=== PATIENT | male | born 1980 | race Caucasian/White ===

== ENCOUNTER 2018-09-26 18:36 | Emergency (ER) | payer SELFPAY ==
[~2018-09-26] VITALS: Wt 82.0 kg
[2018-09-26] MEDS ORDERED: SOD CHLORIDE 0.9% 1,000 ML IV STA (19:14)
[2018-09-26] MEDS ORDERED: ONDANSETRON 4 MG INJ IV STA (19:14)
[2018-09-26] MEDS ORDERED: ACET-141 PO (20:13)
[2018-09-26] MEDS ORDERED: ALKA PO (20:13)
[2018-09-26] MEDS ORDERED: IOHEXOL 300MG/ML 150 ML BTL ONE (23:16)
[2018-09-26] MEDS ORDERED: SOD CHLORIDE 0.9% 100 ML ONE (23:16)
--- NOTE | 2018-09-27 00:05 | ERD ---
ER Documentation Chief Complaint Chief Complaint bib self, jeison cano, cc: chest pain and sob, stopped upon arrival HPI This is a very pleasant 38-year-old male who works at [employer] and had gone into the elevator and had a sudden onset of shortness of breath and dizziness. Contrary to the triage note he was noted x-rays any chest pain but rather palpitations. He felt as though the room was spinning around h im. He denied a headache. He had no neck pain. He has no shortness of breath at rest or exertion. Indicates he has had lack of sleep over several days as he has had his daughter undergoing multiple tests and MRIs. He denies any recent travel. He denies tobacco. He has no family history of coronary artery disease. The patient also indicates he did have a similar episode 4 years ago. He is brought to the emergency department as a code green. ROS All systems reviewed and are negative except as per history of present illness. Medications Home Meds Reported Medications Aspirin ([place]) 1 Tab Tabef, 1 TAB PO, TAB 09/26/18 Acetaminophen* (Acetaminophen*) 500 MG Extra Strength Tablet, 500 MG PO Q4H PRN for PAIN AND OR ELEVATED TEMP, TAB 09/26/18 Allergies Allergies: Coded Allergies: No Known Allergy (Unverified , 09/26/18) PMhx/Soc History of Surgery: Yes (HERNIA REPAIR) Hx Cardiac Disorders: Yes (HLD, "HEART VIRUS" PER PT) Hx Miscellaneous Medical Probl: No Hx Alcohol Use: Yes (OCCASIONAL) Hx Substance Use: No Hx Tobacco Use: No Smoking Status: Never smoker Physical Exam Vitals Vital Signs Date Temp Pulse Resp B/P (MAP) Pulse Ox O2 O2 Flow FiO2 Time Delivery Rate 09/26/18 105 16 138/88 100 Room Air 22:00 (105) 09/26/18 108 19 115/93 99 Room Air 20:07 (100) 09/26/18 98.1 82 19 137/71 100 18:45 (93) Physical Exam Constitutional:Well-developed. Well-nourished. HEENT:Normocephalic. Atraumatic.Pupils were equal round reactive to light. Moist mucous membranes.No tonsillar exudates. Neck: No nuchal rigidity. No lymphadenopathy. No posterior cervical spine tenderness or step-offs. Respiratory: Not using accessory muscles of respiration.Lungs were clear to auscultation bilaterally. No rhonchi. No rales. No wheezing. Cardiovascular: Sinus tachycardia with regular rhythm.No murmurs. No rubs were appreciated.S1, S2 normal. Distal pulses are palpable 2+ bilaterally. GI: Abdomen was soft. Nontender. Non Distended. No pulsatile abdominal masses or bruits. No rebound. No guarding. Bowel sounds were present and normal. Muscle skeletal: Full range of motion of both the upper and lower extremities bilaterally.Normal muscle tone.No assymetrical calf tenderness or swelling. Skin: No petechia, no purpura. No lesions on the palms or the soles of the feet. No maculopapular rash. NEURO: Patient was alert, awake, orientated x3.No facial droop. Gait observed and normal with no ataxia.Speech had regular rate and rhythm. No focal neurological deficits. Result Diagram: 09/26/18193409/26/181934 Results 24 hrs Laboratory Tests Test 09/26/18 19:35 White Blood Count 11.9 10^3/ul Red Blood Count 5.71 10^6/ul Hemoglobin 16.3 g/dl Hematocrit 48.9 % Mean Corpuscular Volume 85.6 fl Mean Corpuscular Hemoglobin 28.5 pg Mean Corpuscular Hemoglobin Concent 33.3 g/dl Red Cell Distribution Width 12.7 % Platelet Count 357 10^3/UL Mean Platelet Volume 9.0 fl Immature Granulocytes % 0.700 % Neutrophils % 81.1 % Lymphocytes % 11.9 % Monocytes % 6.0 % Eosinophils % 0.0 % Basophils % 0.3 % Nucleated Red Blood Cells % 0.0 /100WBC Immature Granulocytes # 0.080 10^3/ul Neutrophils # 9.7 10^3/ul Lymphocytes # 1.4 10^3/ul Monocytes # 0.7 10^3/ul Eosinophils # 0.0 10^3/ul Basophils # 0.0 10^3/ul Nucleated Red Blood Cells # 0.0 10^3/ul Prothrombin Time 12.7 Sec Prothrombin Time Ratio 1.0 INR International Normalized Ratio 0.94 Activated Partial Thromboplast Time 30.1 Sec D-Dimer 716.90 ng/ml D-Dimer Comment Sodium Level 143 mmol/L Potassium Level 4.0 mmol/L Chloride Level 102 mmol/L Carbon Dioxide Level 25 mmol/L Anion Gap 16 Blood Urea Nitrogen 16 mg/dl Creatinine 0.82 mg/dl Est Glomerular Filtrat Rate mL/min > 60 mL/min Glucose Level 144 mg/dl Calcium Level 9.8 mg/dl Total Bilirubin 0.4 mg/dl Direct Bilirubin 0.00 mg/dl Indirect Bilirubin 0.4 mg/dl Aspartate Amino Transf (AST/SGOT) 34 IU/L Alanine Aminotransferase (ALT/SGPT) 64 IU/L Alkaline Phosphatase 110 IU/L Creatine Kinase 93 IU/L Creatine Kinase Index 0.5 Creatinine Kinase MB (Mass) 0.46 ng/ml Troponin I < 0.012 ng/ml B-Type Natriuretic Peptide 25 PG/ML Total Protein 8.3 g/dl Albumin 5.0 g/dl Globulin 3.30 g/dl Albumin/Globulin Ratio 1.51 Current Medications Medications Dose Sig/Donnie Start Time Status Last (Trade) Ordered Route PRN Stop Time Admin Dose Reason Admin Sodium 1,000 ml @ Q1H STAT 09/26/18 DC 09/26/18 Chloride 1,000 mls/hr IV 19:14 09/26/18 19:29 20:13 Ondansetron 4 mg ONCE STAT 09/26/18 DC 09/26/18 HCl (Zofran IV 19:14 09/26/18 19:29 Inj) 19:16 Sodium 100 ml @ ud STK-MED 09/26/18 DC 09/26/18 Chloride ONCE .ROUTE 23:16 09/26/18 23:42 23:17 Iohexol 150 ml STK-MED 09/26/18 DC 09/26/18 (Omnipaque ONCE .ROUTE 23:16 09/26/18 23:42 300mg/ ml) 23:17 Procedures/MDM The patient presented to the emergency department with shortness of breath. My differential diagnosis included but was not limited to upper airway obstruction, CHF, pulmonary embolism, cardiac ischemia, pneumonia, pneumothorax, anemia, drug overdose, pulmonary edema, COPD or asthma. 12 Lead EKG tracing ordered and reviewed by myself showed: Sinus tachycardia 110 bpm and no arrhythmia. HI interval normal. QRS duration normal. No ST segment elevation No ST segment depression. No changes consistent with acute ischemia. The patient was a low pretest probability according to the Wells criteria. I obtained a d-dimer. This was elevated and therefore obtained a CT scan of the patient's chest. There is no evidence of a pulmonary embolism. Observation Note: Time: 5 hours Family Hx: No Hypertension Evaluation: Multiple exams showed improving symptoms and no evidence of congestive heart failure dyspnea. The patient received Antivert. His symptoms had improved and he felt comfortable being discharged home. Departure Diagnosis: Primary Impression: Shortness of breath Condition: Fair MARIA LUISA DUNCAN MD Sep 27, 2018 00:05
[2018-09-27] MEDS ORDERED: MECL12.574 PO (00:07)
[2018-09-27 00:30] VITALS: BP 119/85; PULSE 100; RESP 18
[2018-09-27] MEDS ORDERED: MECLIZINE 12.5 MG TAB PO ONE (00:30)
== END 2018-09-27 00:31 | disposition home or self-care (01) ==
LOC: E/R 18:36
DX: R06.02 Shortness of breath (principal); Z79.82 Long term (current) use of aspirin
CPT/HCPCS: 71045; 71275; 80053; 82550; 82553; 83880; 84484; 85025; 85378; 85610; 85730; 96374; 99285; J2405; J7030; Q9967